=== PATIENT | female | born 1985 | race Caucasian/White ===

== ENCOUNTER 2021-02-03 10:34 | Inpatient (IN) | payer OTHER ==
[2021-02-03 11:11] VITALS: BMI 19.5
[2021-02-03] MEDS ORDERED: MAG HYDROX/AL HYDROX/SIMETH 30 ML UNIT-DOSE CUP PO PRN (11:16)
[2021-02-03] MEDS ORDERED: chlordiazePOXIDE HCL 25 MG CAPSULE PO PRN (11:16)
[2021-02-03] MEDS ORDERED: MAGNESIUM HYDROX 2400MG/30ML ORAL SUSPENSION 30 ML CUP PO PRN (11:16)
[2021-02-03] MEDS ORDERED: MENTHOL/PHENOL 1 EACH UD MM PRN (11:16)
[2021-02-03] MEDS ORDERED: MAGNESIUM CITRATE 300 ML BOTTLE PO PRN (11:16)
[2021-02-03] MEDS ORDERED: BISMUTH SUBSALICYLATE 262 MG/15 ML BTL PO PRN (11:16)
[2021-02-03] MEDS ORDERED: ONDANSETRON *ODT* 4 MG TABLET SL PRN (11:16)
[2021-02-03] MEDS ORDERED: ACETAMINOPHEN 325 MG TABLET (FP) PO PRN (11:16)
[2021-02-03] MEDS: chlordiazePOXIDE HCL 25 MG CAPSULE PO SCH ×3 (12:50→22:24)
[2021-02-03] MEDS: NICOTINE 14 MG/24 HOURS TOPICAL PATCH TD SCH (12:52)
[2021-02-03] MEDS: PRENATAL VITAMINS W/ FOLIC ACID TABLET (FP) PO SCH (12:52)
[2021-02-03 15:07] LABS: HEMATOCRIT 42.7 % (32.4-45.2); HEMOGLOBIN 14.7 GM/dL (10.7-15.3); MCH 31.6 pg (25.7-33.7); MCHC 34.5 g/dl (32.0-36.0); MEAN CELL VOLUME 91.7 fl (80-96); MEAN PLT VOLUME 7.6 fl (7.5-11.1); PLATELET COUNT 315 10^3/uL (134-434); RBC 4.65 M/mm3 (3.60-5.2); RDW 14.8 % (11.6-15.6)
[2021-02-03] MEDS: hydrOXYzine PAMOATE 25 MG CAPSULE (FP) PO SCH ×3 (15:16→22:23)
[2021-02-03 15:25] LABS: BLOOD UREA NITROGEN 14.9 mg/dL (7-18); CALCIUM 9.6 mg/dL (8.5-10.1)
[2021-02-03 15:29] LABS: BILIRUBIN,TOTAL 0.5 mg/dL (0.2-1); TOT PROT 7.7 g/dl (6.4-8.2)
[2021-02-03] MEDS: IBUPROFEN 400 MG TABLET (FP) PO PRN (17:51)
[2021-02-03] MEDS: QUEtiapine FUMARATE 100 MG TABLET (FP) PO SCH (22:23)
[2021-02-03] MEDS: MELATONIN 5 MG TABLETS PO SCH (22:23)
[2021-02-03] MEDS: THIAMINE HCL 100 MG TABLET (FP) PO SCH (22:23)
[2021-02-03] MEDS: ACETAMINOPHEN 325 MG TABLET (FP) PO PRN (22:25)
[2021-02-04] MEDS: chlordiazePOXIDE HCL 25 MG CAPSULE PO SCH ×4 (06:12→22:04)
[2021-02-04] MEDS: hydrOXYzine PAMOATE 25 MG CAPSULE (FP) PO SCH ×5 (06:12→22:03)
[2021-02-04] MEDS: NICOTINE 14 MG/24 HOURS TOPICAL PATCH TD SCH (10:18)
[2021-02-04] MEDS: PRENATAL VITAMINS W/ FOLIC ACID TABLET (FP) PO SCH (10:19)
[2021-02-04] MEDS: buPROPion HCL 75 MG TABLET PO SCH (10:19)
[2021-02-04] MEDS: METHOCARBAMOL 500 MG TABLET PO PRN (15:11)
[2021-02-04] MEDS: NICOTINE 10 MG CARTRIDGE (INHALER) IH PRN (15:34)
[2021-02-04] MEDS: ACETAMINOPHEN 325 MG TABLET (FP) PO PRN (17:58)
[2021-02-04] MEDS: QUEtiapine FUMARATE 100 MG TABLET (FP) PO SCH (22:03)
[2021-02-04] MEDS: THIAMINE HCL 100 MG TABLET (FP) PO SCH (22:03)
[2021-02-04] MEDS: MELATONIN 5 MG TABLETS PO SCH (22:03)
[2021-02-05] MEDS: chlordiazePOXIDE HCL 25 MG CAPSULE PO SCH ×4 (06:41→22:13)
[2021-02-05] MEDS: hydrOXYzine PAMOATE 25 MG CAPSULE (FP) PO SCH ×5 (06:41→22:13)
[2021-02-05] MEDS: PRENATAL VITAMINS W/ FOLIC ACID TABLET (FP) PO SCH (10:03)
[2021-02-05] MEDS: buPROPion HCL 75 MG TABLET PO SCH (10:04)
[2021-02-05] MEDS: NICOTINE 14 MG/24 HOURS TOPICAL PATCH TD SCH (10:07)
[2021-02-05] MEDS: METHOCARBAMOL 500 MG TABLET PO PRN ×2 (14:33→22:13)
[2021-02-05] MEDS: ACETAMINOPHEN 325 MG TABLET (FP) PO PRN (18:00)
[2021-02-05] MEDS: IBUPROFEN 400 MG TABLET (FP) PO PRN (20:16)
[2021-02-05] MEDS: MELATONIN 5 MG TABLETS PO SCH (22:13)
[2021-02-05] MEDS: THIAMINE HCL 100 MG TABLET (FP) PO SCH (22:13)
[2021-02-05] MEDS: QUEtiapine FUMARATE 100 MG TABLET (FP) PO SCH (22:13)
[2021-02-05] MEDS: NICOTINE 10 MG CARTRIDGE (INHALER) IH PRN (22:16)
[2021-02-06] MEDS ORDERED: chlordiazePOXIDE HCL 10 MG CAPSULE PO PRN
[2021-02-06] MEDS: chlordiazePOXIDE HCL 10 MG CAPSULE PO SCH ×4 (05:47→22:13)
[2021-02-06] MEDS: hydrOXYzine PAMOATE 25 MG CAPSULE (FP) PO SCH ×5 (05:47→22:12)
[2021-02-06] MEDS: NICOTINE 14 MG/24 HOURS TOPICAL PATCH TD SCH (09:21)
[2021-02-06] MEDS: PRENATAL VITAMINS W/ FOLIC ACID TABLET (FP) PO SCH (09:21)
[2021-02-06] MEDS: buPROPion HCL 75 MG TABLET PO SCH (09:21)
[2021-02-06] MEDS: METHOCARBAMOL 500 MG TABLET PO PRN ×2 (09:21→17:14)
[2021-02-06] MEDS: NICOTINE 10 MG CARTRIDGE (INHALER) IH PRN ×2 (14:38→22:14)
[2021-02-06] MEDS ORDERED: ALBUTEROL SO4 HFA INHALER IH PRN (17:08)
[2021-02-06] MEDS ORDERED: ALBUTEROL SO4 HFA INHALER IH ONE (17:09)
[2021-02-06] MEDS: IBUPROFEN 400 MG TABLET (FP) PO PRN (21:27)
[2021-02-06] MEDS: THIAMINE HCL 100 MG TABLET (FP) PO SCH (22:12)
[2021-02-06] MEDS: QUEtiapine FUMARATE 100 MG TABLET (FP) PO SCH (22:12)
[2021-02-06] MEDS: MONTELUKAST NA 10 MG TABLET PO SCH (22:12)
[2021-02-06] MEDS: MELATONIN 5 MG TABLETS PO SCH (22:12)
[2021-02-07] MEDS: chlordiazePOXIDE HCL 10 MG CAPSULE PO SCH ×2 (06:10→16:47)
[2021-02-07] MEDS: METHOCARBAMOL 500 MG TABLET PO PRN (06:10)
[2021-02-07] MEDS: hydrOXYzine PAMOATE 25 MG CAPSULE (FP) PO SCH ×5 (06:10→22:15)
[2021-02-07] MEDS: PRENATAL VITAMINS W/ FOLIC ACID TABLET (FP) PO SCH (09:14)
[2021-02-07] MEDS: NICOTINE 14 MG/24 HOURS TOPICAL PATCH TD SCH (09:14)
[2021-02-07] MEDS: buPROPion HCL 75 MG TABLET PO SCH (09:14)
[2021-02-07] MEDS: THIAMINE HCL 100 MG TABLET (FP) PO SCH (22:15)
[2021-02-07] MEDS: MONTELUKAST NA 10 MG TABLET PO SCH (22:15)
[2021-02-07] MEDS: MELATONIN 5 MG TABLETS PO SCH (22:15)
[2021-02-07] MEDS: QUEtiapine FUMARATE 100 MG TABLET (FP) PO SCH (22:15)
[2021-02-07] MEDS: IBUPROFEN 400 MG TABLET (FP) PO PRN (22:16)
[2021-02-08] MEDS ORDERED: chlordiazePOXIDE HCL 10 MG CAPSULE PO ONE (05:00)
[2021-02-08] MEDS: hydrOXYzine PAMOATE 25 MG CAPSULE (FP) PO SCH ×4 (06:04→17:15)
[2021-02-08] MEDS: METHOCARBAMOL 500 MG TABLET PO PRN ×2 (06:04→17:58)
[2021-02-08] MEDS: IBUPROFEN 400 MG TABLET (FP) PO PRN (06:04)
[2021-02-08] MEDS: PRENATAL VITAMINS W/ FOLIC ACID TABLET (FP) PO SCH (10:11)
[2021-02-08] MEDS: buPROPion HCL 75 MG TABLET PO SCH (10:11)
[2021-02-08] MEDS: NICOTINE 14 MG/24 HOURS TOPICAL PATCH TD SCH (10:11)
[2021-02-08] MEDS: NICOTINE 10 MG CARTRIDGE (INHALER) IH PRN ×2 (12:53→18:09)
[2021-02-08 17:26] VITALS: BP 108/69; PULSE 95; TEMP 97.3
== END 2021-02-08 17:25 | disposition other institution (70) | DRG 897 ==
LOC: YASAS 10:34 → Y3N 11:38
PROVIDERS: ADMIT Allergy & Immunology; ATTEND Allergy & Immunology
PROC: HZ2ZZZZ Detoxification Services for Substance Abuse Treatment (ICD-10-PCS; principal; 2021-02-03)
DX: F10.230 Alcohol dependence with withdrawal, uncomplicated (principal); F14.10 Cocaine abuse, uncomplicated; F12.10 Cannabis abuse, uncomplicated; F17.210 Nicotine dependence, cigarettes, uncomplicated; F31.9 Bipolar disorder, unspecified; J45.909 Unspecified asthma, uncomplicated; G47.00 Insomnia, unspecified; Z91.51 Personal history of suicidal behavior; Z56.0 Unemployment, unspecified
CPT/HCPCS: 36415; 80053; 81025; 85027; 86780; 93005; 93010; C9803; Q0162; U0003; U0005

== ENCOUNTER 2021-02-08 19:18 | Inpatient (IN) | payer OTHER ==
[~2021-02-08 19:18] MED LIST: ACETAMINOPHEN 325 MG TABLET (FP) PO PRN; LOPERAMIDE HCL 2 MG CAPSULE PO PRN; MAG HYDROX/AL HYDROX/SIMETH 30 ML UNIT-DOSE CUP PO PRN; MAGNESIUM CITRATE 300 ML BOTTLE PO PRN; MAGNESIUM HYDROX 2400MG/30ML ORAL SUSPENSION 30 ML CUP PO PRN; MENTHOL/PHENOL 1 EACH UD MM PRN
[2021-02-08] MEDS: MELATONIN 5 MG TABLETS PO SCH (21:53)
[2021-02-08] MEDS: THIAMINE HCL 100 MG TABLET (FP) PO SCH (21:53)
[2021-02-08] MEDS: IBUPROFEN 400 MG TABLET (FP) PO PRN (21:55)
[2021-02-08] MEDS ORDERED: QUEtiapine FUMARATE 100 MG TABLET (FP) PO ONE (22:00)
[2021-02-08] MEDS: NICOTINE 10 MG CARTRIDGE (INHALER) IH PRN (22:02)
[2021-02-09] MEDS: hydrOXYzine PAMOATE 25 MG CAPSULE (FP) PO PRN ×3 (06:32→22:04)
[2021-02-09] MEDS: NICOTINE 10 MG CARTRIDGE (INHALER) IH PRN ×4 (06:33→22:06)
[2021-02-09] MEDS: IBUPROFEN 400 MG TABLET (FP) PO PRN ×2 (07:00→22:05)
[2021-02-09] MEDS: PRENATAL VITAMINS W/ FOLIC ACID TABLET (FP) PO SCH (10:13)
[2021-02-09] MEDS: NICOTINE 14 MG/24 HOURS TOPICAL PATCH TD SCH (10:13)
[2021-02-09] MEDS: MONTELUKAST NA 10 MG TABLET PO SCH (10:14)
[2021-02-09] MEDS: buPROPion HCL 75 MG TABLET PO SCH (10:43)
[2021-02-09] MEDS: METHOCARBAMOL 500 MG TABLET PO PRN (11:58)
[2021-02-09] MEDS ORDERED: PNEUMOCOCCAL 23 VACCINE 0.5 ML VIAL IM ONE (12:00)
[2021-02-09] MEDS ORDERED: PNEUMOC 13-VAL CONJ-DIP CRM/PF 0.5 ML DISP.SYRIN IM ONE (12:00)
[2021-02-09] MEDS: ALBUTEROL SO4 HFA INHALER IH PRN (14:23)
[2021-02-09] MEDS ORDERED: ALBUTEROL SO4 0.083% IH SOL 2.5 MG/3 ML VIAL.NEB. NEB ONE (14:29)
[2021-02-09] MEDS: MELATONIN 5 MG TABLETS PO SCH (22:04)
[2021-02-09] MEDS: QUEtiapine FUMARATE 100 MG TABLET (FP) PO SCH (22:32)
[2021-02-09] MEDS: THIAMINE HCL 100 MG TABLET (FP) PO SCH (22:32)
[2021-02-10] MEDS: METHOCARBAMOL 500 MG TABLET PO PRN ×2 (06:07→21:46)
[2021-02-10] MEDS: hydrOXYzine PAMOATE 25 MG CAPSULE (FP) PO PRN ×3 (06:08→21:47)
[2021-02-10] MEDS: MONTELUKAST NA 10 MG TABLET PO SCH (10:26)
[2021-02-10] MEDS: PRENATAL VITAMINS W/ FOLIC ACID TABLET (FP) PO SCH (10:26)
[2021-02-10] MEDS: NICOTINE 14 MG/24 HOURS TOPICAL PATCH TD SCH (10:26)
[2021-02-10] MEDS: buPROPion HCL 75 MG TABLET PO SCH (10:26)
[2021-02-10] MEDS: NICOTINE 10 MG CARTRIDGE (INHALER) IH PRN ×3 (10:28→21:47)
[2021-02-10] MEDS: THIAMINE HCL 100 MG TABLET (FP) PO SCH (21:46)
[2021-02-10] MEDS: QUEtiapine FUMARATE 100 MG TABLET (FP) PO SCH (21:46)
[2021-02-10] MEDS: MELATONIN 5 MG TABLETS PO SCH (21:46)
[2021-02-10] MEDS: ALBUTEROL SO4 HFA INHALER IH PRN (21:47)
[2021-02-11] MEDS: hydrOXYzine PAMOATE 25 MG CAPSULE (FP) PO PRN ×3 (06:12→21:57)
[2021-02-11] MEDS: METHOCARBAMOL 500 MG TABLET PO PRN ×3 (06:13→21:59)
[2021-02-11] MEDS: NICOTINE 10 MG CARTRIDGE (INHALER) IH PRN ×4 (06:14→21:59)
[2021-02-11] MEDS: MONTELUKAST NA 10 MG TABLET PO SCH (10:33)
[2021-02-11] MEDS: NICOTINE 14 MG/24 HOURS TOPICAL PATCH TD SCH (10:33)
[2021-02-11] MEDS: buPROPion HCL 75 MG TABLET PO SCH (10:33)
[2021-02-11] MEDS: PRENATAL VITAMINS W/ FOLIC ACID TABLET (FP) PO SCH (10:33)
[2021-02-11] MEDS: THIAMINE HCL 100 MG TABLET (FP) PO SCH (21:57)
[2021-02-11] MEDS: MELATONIN 5 MG TABLETS PO SCH (21:57)
[2021-02-11] MEDS: QUEtiapine FUMARATE 100 MG TABLET (FP) PO SCH (21:57)
[2021-02-11] MEDS: ALBUTEROL SO4 HFA INHALER IH PRN (21:59)
[2021-02-12] MEDS: hydrOXYzine PAMOATE 25 MG CAPSULE (FP) PO PRN ×3 (06:19→17:30)
[2021-02-12] MEDS: METHOCARBAMOL 500 MG TABLET PO PRN ×3 (06:19→21:41)
[2021-02-12] MEDS: NICOTINE 10 MG CARTRIDGE (INHALER) IH PRN ×5 (06:20→21:43)
[2021-02-12] MEDS: MONTELUKAST NA 10 MG TABLET PO SCH (10:51)
[2021-02-12] MEDS: PRENATAL VITAMINS W/ FOLIC ACID TABLET (FP) PO SCH (10:51)
[2021-02-12] MEDS: buPROPion HCL 75 MG TABLET PO SCH (10:51)
[2021-02-12] MEDS: NICOTINE 14 MG/24 HOURS TOPICAL PATCH TD SCH (10:51)
[2021-02-12] MEDS: MELATONIN 5 MG TABLETS PO SCH (21:40)
[2021-02-12] MEDS: QUEtiapine FUMARATE 100 MG TABLET (FP) PO SCH (21:41)
[2021-02-12] MEDS: ALBUTEROL SO4 HFA INHALER IH PRN (21:41)
[2021-02-12] MEDS: THIAMINE HCL 100 MG TABLET (FP) PO SCH (21:41)
[2021-02-13] MEDS: NICOTINE 10 MG CARTRIDGE (INHALER) IH PRN ×2 (06:31→10:26)
[2021-02-13] MEDS: METHOCARBAMOL 500 MG TABLET PO PRN (06:31)
[2021-02-13] MEDS: hydrOXYzine PAMOATE 25 MG CAPSULE (FP) PO PRN (06:31)
[2021-02-13 07:25] VITALS: BP 106/75; PULSE 91; TEMP 98
[2021-02-13] MEDS: MONTELUKAST NA 10 MG TABLET PO SCH (10:26)
[2021-02-13] MEDS: NICOTINE 14 MG/24 HOURS TOPICAL PATCH TD SCH (10:26)
[2021-02-13] MEDS: buPROPion HCL 75 MG TABLET PO SCH (10:26)
[2021-02-13] MEDS: PRENATAL VITAMINS W/ FOLIC ACID TABLET (FP) PO SCH (10:26)
== END 2021-02-13 14:10 | disposition home or self-care (01) | DRG 895 ==
LOC: YASAS 19:18 → Y5N 19:19
PROVIDERS: ADMIT Allergy & Immunology; ATTEND Allergy & Immunology
PROC: HZ42ZZZ Group Counseling for Substance Abuse Treatment, Cognitive-Behavioral (ICD-10-PCS; principal; 2021-02-08)
DX: F10.20 Alcohol dependence, uncomplicated (principal); F14.20 Cocaine dependence, uncomplicated; F12.10 Cannabis abuse, uncomplicated; F17.210 Nicotine dependence, cigarettes, uncomplicated; J45.909 Unspecified asthma, uncomplicated; G47.00 Insomnia, unspecified